=== PATIENT | male | born 1985 | race Caucasian/White ===

== ENCOUNTER 2020-01-16 06:45 | Day surgery (SDC) | payer OTHER ==
[2020-01-02 09:26] VITALS: BMI 23.0
[2020-01-16] MEDS ORDERED: Lidocaine 2% PF 5 ML VIAL ONE (08:21)
[2020-01-16] MEDS ORDERED: Fentanyl 100 MCG/2 ML VIAL ONE ×2 (08:21→10:26)
[2020-01-16] MEDS ORDERED: Midazolam HCl 2 mg/2 ml Vial ONE (08:21)
[2020-01-16] MEDS ORDERED: Bupivacaine PF 0.5% 30 ML VIAL ONE (08:46)
[2020-01-16] MEDS ORDERED: Bupivacaine 0.25% HCL 30 ML VIAL ONE (08:46)
[2020-01-16] MEDS ORDERED: Lidocaine 1% w/Epinephrine 1:100K 20 ML VIAL ONE (08:46)
[2020-01-16] MEDS ORDERED: Ondansetron PF 4 MG/2 ML Vial ONE (09:31)
[2020-01-16] MEDS ORDERED: Lidocaine 1% PF 5 ML VIAL ONE (09:31)
[2020-01-16] MEDS ORDERED: Dexamethasone 20 MG/5 ML VIAL ONE (09:31)
[2020-01-16] MEDS ORDERED: Rocuronium Bromide 10 MG/ML (10ML VIAL) ONE (09:31)
[2020-01-16] MEDS ORDERED: Succinylcholine Chloride 20 MG/ML 10 ml SYRINGE FS ONE (09:31)
[2020-01-16] MEDS ORDERED: PROPOFOL 200 MG/20 ML VIAL ONE (09:31)
--- NOTE | 2020-01-16 10:24 | OP ---
DATE OF PROCEDURE: 01/16/2020 PREOPERATIVE DIAGNOSIS: Right inguinal hernia, incarcerated. POSTOPERATIVE DIAGNOSIS: Right inguinal hernia, incarcerated. PROCEDURE PERFORMED: Incarcerated right inguinal hernia repair with mesh. ANESTHESIA: General. ESTIMATED BLOOD LOSS: Minimal. COMPLICATIONS: None. SPECIMEN: None. FINDINGS: Right inguinal hernia. DESCRIPTION OF PROCEDURE: The patient was taken to the operating room and laid supine on the operating room table. After general anesthetic was obtained, bilateral groins and abdomen were shaved, prepped, and draped in a sterile fashion. An oblique incision was made above the pubic tubercle in the right lower quadrant. Cautery was dissected down through Aaliyah's to expose external oblique. External oblique fibers were opened along the course of the external ring. The ilioinguinal nerve was found and high removed to prevent postop pain. Cord structures were mobilized on the pubic tubercle using a Nye drain, dissection superiorly and medially on the cord showed there to be the large indirect hernia sac. This was dissected away from surrounding structures and a high ligation was performed using silk suture. There was a defect in the floor of the inguinal canal too, this defect was opened and the preperitoneal space bluntly dissected using a wet unraveled Ray-Annia. PHS extended mesh brought into the sterile field. The underlay was placed in preperitoneal space. Its fibers laid out flat against the posterior abdominal wall. The overlay was sewn to the floor of inguinal canal distally to the pubic tubercle medially to the transverse arch, laterally to the shelving edge of inguinal ligament. The mesh was cut to wrap around the internal ring and both ends were reapproximated at the shelving edge of inguinal ligament as well. The wound was irrigated. Local anesthetic was applied, tunneled cath for postoperative pain, threaded above the incision, left on top of the mesh. The external oblique was closed using 3-0 Vicryl. Aaliyah's closed using 3-0 Vicryl. The wound had been irrigated prior to closure. The skin was closed using running 4-0 Monocryl and Dermabond. The patient was sent to Recovery in stable condition. All instrument counts, needle counts, and lap counts were correct. Job ID: [id number]
== END 2020-01-16 12:30 | disposition home or self-care (01) ==
LOC: SDC 06:45
PROVIDERS: ATTEND Surgery
PROC: 0YU50JZ Supplement Right Inguinal Region with Synthetic Substitute, Open Approach (ICD-10-PCS; principal; 2020-01-16)
DX: K40.30 Unilateral inguinal hernia, with obstruction, without gangrene, not specified as recurrent (principal)
CPT/HCPCS: A4306; C1781; J0690; J1100; J2001; J2250; J2405; J2704; J3010; S0020